=== PATIENT | female | born 1985 | race Hispanic/Latino ===

== ENCOUNTER 2024-03-09 08:00 | Day surgery (SDC) | payer OTHER ==
[2024-03-03 10:29] VITALS: BP 130/94
[~2024-03-09] VITALS: Ht 157.5 cm; Wt 73.6 kg
[~2024-03-09 08:00] MED LIST: CEFAZOLIN SODIUM 2 GM/20 ML SYR IV SCH; DEXAMETHASONE SOD PHOS 4 MG/ML VIAL ONE; FAMOTIDINE 20 MG/ 2 ML VIAL ONE; IBLOOD GLUCOSE TEST STRIP 1 EA TEST VI PRN; KETOROLAC TROMETHAMINE 30 MG/ML VIAL ONE; LACTATED RINGER'S 1,000 ML IV ONE; LACTATED RINGER'S 1,000 ML IV SCH; LIDOCAINE HCL 1% 5 ML SDV INJ ONE; LIDOCAINE HCL 4% 5 ML AMP ONE; METOCLOPRAMIDE HCL 10 MG/2 ML SDV IV PRN; METOCLOPRAMIDE HCL 10 MG/2 ML SDV ONE; MIDAZOLAM HCL 2 MG/2 ML VIAL ONE; MORPHINE SULFATE 10 MG/ML VIAL IV PRN; MULTI VITAMIN1 EACH PO; NALOXONE HCL 0.4 MG SYR IV PRN; PANTOPRAZOLE SO40 MG PO; PROCHLORPERAZINE EDISYLATE 10 MG/2 ML VIAL IV PRN; ROCURONIUM BROMIDE 50 MG/5 ML SYR ONE; SUCCINYLCHOLINE IN 0.9% NACL 200 MG/10 ML SYRINGE ONE; SUGAMMADEX SODIUM 200 MG/2 ML ML ONE; droPERidol 5 MG/2 ML VIAL IV PRN; fentaNYL citrate 100 MCG/2 ML VIAL ONE; fentaNYL citrate 50 MCG/ML SDV IV PRN; ondansetron HCL 4 MG/2 ML VIAL IV PRN; ondansetron HCL 4 MG/2 ML VIAL ONE; propofoL 200 MG/20 ML VIAL ONE
[2024-03-09 08:44] VITALS: BP 134/87
[2024-03-09] MEDS ORDERED: LACTATED RINGER'S 1,000 ML IV ONE (10:22)
[2024-03-09] MEDS ORDERED: FLUORESCEIN SODIUM 500 MG/5 ML ML ONE (10:31)
--- NOTE | 2024-03-09 11:18 | NUR ---
03/09/24 1118 Leonor Peters 1105 PT ARRIVED IN PACU NON RESPONSIVE TO NOXIOUS STIMULI WITH OPA IN PLACE. CHIN LIFT HELD BY RN. 1113 PT REACTIVE. OPA REMOVED. 1118 RESTING. REU.
[2024-03-09] MEDS ORDERED: OXYCODONE/APAP 5/325 TAB PO PRN (11:30)
[2024-03-09] MEDS ORDERED: NALOXONE HCL 0.4 MG SYR IV PRN (11:30)
[2024-03-09] MEDS ORDERED: FAMOTIDINE 20 MG/ 2 ML VIAL IV PRN (11:30)
[2024-03-09] MEDS ORDERED: SIMETHICONE 125 MG TABLET CHEWABLE PO PRN (11:30)
[2024-03-09] MEDS ORDERED: ondansetron HCL 4 MG/2 ML VIAL IV PRN (11:30)
[2024-03-09] MEDS ORDERED: MAGNESIUM HYDROXIDE/AL HYDROX 30 ML CUP PO PRN (11:30)
[2024-03-09] MEDS ORDERED: METOCLOPRAMIDE HCL 10 MG/2 ML SDV IV PRN (11:30)
[2024-03-09] MEDS ORDERED: MORPHINE SULFATE 10 MG/ML VIAL IV PRN (11:30)
[2024-03-09 12:18] VITALS: BP 118/90
--- NOTE | 2024-03-09 12:22 | NUR ---
PATIENT BACK IN DAY SURGERY ROOM FROM PACU. DROWSY. SLEEPING, BUT WAKES EASILY TO VOICE. RATES PAIN 3/10. DENIES NEED FOR PAIN MEDICATION AT THIS TIME. DRESSINGS X 3 ON ABDOMEN ARE ALL CLEAN, DRY AND INTACT. PERIPAD IN PLACE HAS NO DRAINAGE ON IT AT THIS TIME. VS CHECKED. IV SITE WNL. ICE WATER PLACED AT BEDSIDE. CALL LIGHT WITHIN REACH.
--- NOTE | 2024-03-09 13:06 | NUR ---
PT UP TO BATHROOM WITH ASSIST. PT VOIDED 600ML. PT BACK TO ROOM WITHOUT DIFFICULTY.
[2024-03-09 13:30] VITALS: BP 118/90
[2024-03-09 14:30] VITALS: BP 120/77
--- NOTE | 2024-03-09 15:02 | NUR ---
1330: PATIENT AWAKENED FROM SLEEPING. STATES PAIN LEVEL THE SAME. DENIES NEED FOR PAIN MEDICATION AT THIS TIME. VS CHECKED. NO NEEDS AT THIS TIME. CALL LIGHT WITHIN REACH. 1430: PATIENT TOLERATED CRACKERS. DISCHARGE INSTRUCTIONS GIVEN TO PATIENT AND . IV DC'D WNL. TIP INTACT. DRESSING APPLIED. PATIENT C/O NAUSEA AFTER IV REMOVED. OFFERED TO CALL DR. HALL FOR ORAL ANTINAUSEA MEDICATION. PATIENT DECLINED. PATIENT GETTING DRESSED WITH HELP FROM . 1445: PATIENT WALKED TO BATHROOM WITH . STATES NAUSEA BETTER AND WOULD LIKE TO GO HOME. PATIENT DISCHARGED TO HOME VIA WHEELCHAIR WITH .
--- NOTE | 2024-03-15 17:19 | PATH ---
[facility] [address], [place] [address] Signed SPECIMEN(S): A UTERUS, CERVIX, BILATERAL TUBES SPECIMEN SOURCE: A. UTERUS, CERVIX, BILATERAL TUBES CLINICAL HISTORY: AUB, intramural fibroids, dysmenorrhea FINAL PATHOLOGIC DIAGNOSIS: Uterus, cervix and bilateral tubes: - Proliferative endometrium, negative for hyperplasia or atypia. - Benign endo- and ectocervical epithelium. - Benign myometrial leiomyoma. - Benign bilateral fimbriated oviducts. JVR:clv MICROSCOPIC EXAMINATION: Histologic sections of all submitted blocks are examined by light microscopy. These findings, together with the gross examination, support the pathologic diagnosis. GROSS DESCRIPTION: The specimen, labeled and designated "Hans Craft, uterus, cervix, bilateral fallopian tubes," is received in formalin and consists of uterus with attached cervix and detached fallopian tubes. The uterus and cervix weighs 122 g measuring 9.5 x 6.2 x 4.6 cm. The uterine serosa is pink-nunes smooth. The cervix measures 2.8 x 2.8 cm, there is an area of defect on the anterior ectocervix measuring 0.7 x 0.5 cm and the remainder of the ectocervix pink-nunes smooth, and an ovoid and patent os measuring 0.5 cm in greatest dimension. The specimens opened to reveal triangular-shaped endometrium measuring 4.5 x 2.7 cm and is pink-nunes slightly thickened ranging in thickness from 0.2 to 0.3 cm. The myometrial thickness is 1.8 cm and is serially sectioned to reveal two intramural leiomyoma ranging in size from 0.8 to 1.0 cm in greatest dimension. The first detached fallopian tube measures 4.2 cm in length by 0.6 cm in greatest diameter with attached fimbriated end. Psychiatric Technician sections are submitted. Cassette Summary: (A1) bank representative sections of cervix to include defect PATIENT NAME: DARRIUS CRAFT PATHOLOGY DATE OF : 89 REPORT #: [id number] PHYSICIAN: [facility] PCP: CICI BUTLER REPORT IS CONFIDENTIAL AND NOT TO BE RELEASED WITHOUT AUTHORIZATION [facility] [address], [place] [address] Signed (A2) bank representative sections of endometrium myometrium (A3) bank representative sections of leiomyoma (A4) bank representative sections of the first described fallopian tube (A5) bank representative sections second described fallopian tube JM (under the direct supervision of a pathologist) The Gross Description was prepared using a voice recognition system. The report was reviewed for accuracy; however, sound-alike word errors, addition and/or deletions may occur. If there is any question about this report, please contact Client Services. PERFORMING LABORATORY: Technical component was performed by [facility], [address] [place] [id number] (CLIA# [id number]). Professional interpretation was performed by [facility] - [facility], [address] [place] [phone] (CLIA#: [id number]). Diagnostician: Tay Ramírez MD Pathologist Electronically Signed 03/15/2024 Copies: ~ PATIENT NAME: JAMIE MILIANDARRIUS Humphrey PATHOLOGY DATE OF : 89 REPORT #: [id number] PHYSICIAN: [facility] PCP: CICI BUTLER REPORT IS CONFIDENTIAL AND NOT TO BE RELEASED WITHOUT AUTHORIZATION
== END 2024-03-09 14:45 | disposition home or self-care (01) ==
LOC: DS 08:00
PROVIDERS: ATTEND Obstetrics & Gynecology
PROC: 0UB74ZZ Excision of Bilateral Fallopian Tubes, Percutaneous Endoscopic Approach (ICD-10-PCS; 2024-03-09)
PROC: 0UT94ZZ Resection of Uterus, Percutaneous Endoscopic Approach (ICD-10-PCS; principal; 2024-03-09 09:50)
DX: D25.1 Intramural leiomyoma of uterus (principal); N93.9 Abnormal uterine and vaginal bleeding, unspecified; N85.8 Other specified noninflammatory disorders of uterus; N94.6 Dysmenorrhea, unspecified; Z79.899 Other long term (current) drug therapy
CPT/HCPCS: 00840; J0330; J0690; J1100; J1885; J2250; J2405; J2704; J2765; J3010; J3490; J7121